=== PATIENT | male | born 1960 ===

== ENCOUNTER 2016-12-28 06:28 | Inpatient (IN) | payer OTHER ==
[2016-12-28] VITALS (7 sets, daily range): BP systolic 103–143; BP diastolic 68–101
[~2016-12-28] VITALS: Ht 175.3 cm; Wt 73.4 kg
[~2016-12-28 06:28] MED LIST: CIPRO500 MG PO; METRONIDAZOLE500 MG PO
--- NOTE | 2016-12-28 10:38 | OPERATIVE REPORT ---
DATE OF SURGERY: 12/28/2016 SURGEON: Larry Barrios MD MUSIC TYPOGRAPHER: Bernie Silva III, MD PREOPERATIVE DIAGNOSIS: 1. Diverticulitis POSTOPERATIVE DIAGNOSIS: 1. Diverticulitis PROCEDURE PERFORMED: 1. Laparoscopic sigmoid colectomy ANESTHESIA: General. INDICATIONS: The patient is a 56-year-old man with recurrent episodes of diverticulitis, requiring antibiotic therapy. He is on his third course of antibiotics. SURGICAL TECHNIQUE: The patient was taken to the operating room, where a general anesthetic was administered and the patient was placed in the low lithotomy position. A sterile prep and drape was done and the patient underwent preoperative mechanical and antibiotic bowel preparation. IV antibiotics were administered. A Chavez catheter, orogastric tube, and sequential compression devices were in place. A local anesthetic of 0.5% Marcaine with epinephrine was infiltrated at each of the incision sites. An infraumbilical incision was made and a Veress needle used to insufflate the abdominal cavity. A 10 mm cannula was passed and 3 additional trocars were placed in the usual positions. The sigmoid colon was freed up along its lateral peritoneal reflection using the Thunderbeat device. The entire dissection was carried out with the Thunderbeat. Once this was freed up, a suitable point of descending colon and sigmoid colon junction was selected. This was at a site above all the induration and diverticulae and yet still allowed sufficient redundancy when the left colon was mobilized to reach the pelvis without tension. This was divided with the Endo- PETRA stapler. The mesocolon was taken down using the Thunderbeat device over the pelvic brim onto the rectum. There was 1 low lying diverticulum which was also included in the resection. A stapler was applied at this point and the specimen was found to be freed. The umbilical trocar site was extended a short distance and the fascia opened. The specimen was extracted and the end of the sigmoid colon pulled up. It was freed of excess fat and a pursestring device was used to place a 3-0 Maxon pursestring on the end after cutting with a staple line. The 31 mm stapler was selected, after sizing the descending colon and tied in position and returned to the abdominal cavity. The fascia was closed with running #1 Maxon suture and the abdomen re-insufflated. A stapled EEA anastomosis was carried out using the 31 mm device. This proceeded uneventfully and there were 2 intact donuts of tissue recovered. Insufflation was performed under irrigation fluid and this demonstrated no evidence of air leakage. The free fluid was suctioned away and the field was found to be hemostatic. Gas was evacuated, and the skin sites closed with either running or interrupted subcuticular 4-0 Vicryl suture. Steri-Strips and dressings were applied. The patient left the operating room in stable condition. No intraoperative complications were encountered.
[2016-12-29 02:26] VITALS: BP 104/73
[2016-12-29 06:16] VITALS: BP 101/69
[2016-12-29 10:27] VITALS: BP 111/78
--- NOTE | 2016-12-29 12:04 | Progress Note ---
Subjective General POD 1 from lap sig colectomy Pt has passed gas, ambulating and no complaints. Physical Exam Vital Signs / I&Os Vital Signs Date Time Temp Pulse Resp B/P Pulse O2 O2 Flow FiO2 Ox Delivery Rate 12/29 1027 97.9 60 18 111/78 98 Room Air 12/29 0616 98.1 62 18 101/69 97 Room Air 12/29 0226 97.9 62 18 104/73 94 Room Air 12/28 2328 97.9 69 18 103/68 94 Room Air 12/28 2222 64 12/28 1757 97.9 76 18 130/94 95 Room Air 12/28 1742 2.0 12/28 1500 2.0 12/28 1455 97.7 81 18 143/101 95 Room Air I&O 12/28 0800 12/28 1600 12/29 0000 Intake Total 50 1756 Output Total 1060 650 Balance 50 696 -650 General Appearance Alert, Oriented X3, Cooperative Lungs Normal exam Abdomen Normal exam, Normal bowel sounds, dressings intact Assessment and Plan Problem List 1. S/P partial colectomy Plan clear liqus as magalie
[2016-12-29 14:34] VITALS: BP 141/87
[2016-12-29 17:56] VITALS: BP 143/85
[2016-12-29 23:18] VITALS: BP 137/95
[2016-12-30 03:12] VITALS: BP 136/83
[2016-12-30 06:18] VITALS: BP 161/99
[2016-12-30] MEDS ORDERED: NORCO1 TA1 PO (07:28)
--- NOTE | 2016-12-30 07:28 | Provider's Discharge Care Plan ---
Problem, Goal, Plan Problem List 1. S/P partial colectomy
--- NOTE | 2016-12-30 07:28 | Provider's Discharge Care Plan ---
Problem, Goal, Plan Problem List 1. S/P partial colectomy
== END 2016-12-30 10:35 | disposition home or self-care (01) | DRG 331 ==
LOC: SCU SRH 06:28 → U SRH 07:30 → ACUTE2 SRH 11:20
PROVIDERS: ADMIT Surgery
PROC: 0DTN0ZZ Resection of Sigmoid Colon, Open Approach (ICD-10-PCS; principal; 2016-12-28 07:30)
DX: K57.32 Diverticulitis of large intestine without perforation or abscess without bleeding (principal); I10 Essential (primary) hypertension; Z86.010 Personal history of colon polyps; F17.210 Nicotine dependence, cigarettes, uncomplicated
CPT/HCPCS: 50002; 60001; 70002; 80102; 80212; 80248; 81240; 82320; 82669; 82723; 82794; 82897; 83587; 83982; 84038; 84041; 84344